=== PATIENT | female | born 1990 | race Hispanic/Latino ===

== ENCOUNTER → 2021-03-08 | Outpatient (CLI) | payer BC | END | disposition home or self-care (01) | LOC: DTH 16:01 | PROVIDERS: ATTEND Surgery | DX: K21.9 Gastro-esophageal reflux disease without esophagitis (principal); E66.01 Morbid (severe) obesity due to excess calories; K76.0 Fatty (change of) liver, not elsewhere classified | CPT/HCPCS: 97802 ==

== ENCOUNTER 2021-04-14 05:33 | Inpatient (IN) | payer OTHER ==
[2021-04-07 10:02] LABS: BASOPHILS % (AUTO) 0.3 % (0.0-5.0); EOSINOPHILS % (AUTO) 0.6 % (0.0-8.0); HEMATOCRIT 41.6 % (36-48); LYMPHOCYTES % (AUTO) 33.5 % (21.0-51.0); MEAN CORPUSCULAR HEMOGLOBIN 28.2 pg (27.0-33.0); MEAN CORPUSCULAR HGB CONC 32.9 g/dL (32.0-36.0); MEAN CORPUSCULAR VOLUME 85.6 fL (79-99); MONOCYTES % (AUTO) 5.7 % (3.0-13.0); NEUTROPHILS % (AUTO) 59.6 % (40.0-77.0); PLATELET COUNT (AUTO) 339 K/uL (130-400); RED BLOOD CELL COUNT(AUTO) 4.86 MIL/uL (4.00-5.50); RED CELL DISTRIBUTION WIDTH 12.4 % (11.0-15.5); WHITE BLOOD COUNT (AUTO) 7.9 K/uL (4.8-10.8)
[2021-04-07 10:16] LABS: CREATININE 0.6 mg/dL (0.5-1.5); POTASSIUM 4.2 mmol/L (3.5-5.1)
[2021-04-07 10:18] LABS: INR 1.01 (0.85-1.15)
[2021-04-07 10:20] LABS: PARTIAL THROMBOPLASTIN TIME 31.2 SEC (26.3-35.5)
[2021-04-13 12:50] VITALS: BP 137/75
[~2021-04-14] VITALS: Ht 160 cm; Wt 94.2 kg
[2021-04-14] VITALS (26 sets, daily range): BP systolic 107–132; BP diastolic 44–81
[~2021-04-14 05:33] MED LIST: ASCO100031 PO; CALC-1038 PO; LACTATED RINGERS 1000ML 1,000 ML IV ONE; MULT-1401 PO; OMEG-148 PO; ZINC220T4 PO
[2021-04-14] MEDS ORDERED: BUPIVACAINE/EPI/PF 0.5% 30ML VIAL IJ ONE (06:26)
[2021-04-14] MEDS ORDERED: METHYLENE BLUE 5 MG/ML AMP ONE (06:27)
[2021-04-14] MEDS ORDERED: SCOPOLAMINE HYDROBROMIDE 1 EACH ADH..PATCH TD ONE (06:36)
[2021-04-14] MEDS ORDERED: LIDOCAINE PF 100MG/5ML (2%) SYRINGE 5ML ONE (06:37)
[2021-04-14] MEDS ORDERED: DEXAMETHASONE SOD PHOSPHATE 10MG/ML 1ML VIAL ONE ×2 (06:37→07:50)
[2021-04-14] MEDS ORDERED: SUCCINYLCHOLINE 200MG/10ML SYR ONE (06:37)
[2021-04-14] MEDS ORDERED: FENTANYL CITRATE PF 50 MCG/1 ML 2ML VIAL ONE (06:38)
[2021-04-14] MEDS ORDERED: ROCURONIUM 10MG/1ML SYR 10 MG/ML ML ONE (06:38)
[2021-04-14] MEDS ORDERED: ONDANSETRON HCL 4 MG/2 ML VIAL ONE ×2 (06:38→08:20)
[2021-04-14] MEDS ORDERED: PROPOFOL 10 MG/ML 20ML VIAL IV ONE ×2 (06:38→07:52)
[2021-04-14] MEDS ORDERED: MIDAZOLAM HCL 1 MG/ML 2ML VIAL ONE (06:39)
[2021-04-14] MEDS ORDERED: KETAMINE 50MG/ML SYRINGE 50 MG/ML DISP.SYRIN IV ONE (06:43)
[2021-04-14] MEDS ORDERED: MAGNESIUM SULFATE 1 GM/2 ML VIAL ONE (06:43)
[2021-04-14] MEDS ORDERED: DEXMEDETOMIDINE HCL 200 MCG/2 ML VIAL IV ONE (06:43)
[2021-04-14] MEDS: CEFOXITIN SODIUM 2 GM VIAL ONE ×2 (06:44→07:19)
[2021-04-14] MEDS: CYANOCOBALAMIN (VITAMIN B-12) 1000 MCG/ML 1ML VIAL IM SCH ×2 (06:45→07:18)
[2021-04-14] MEDS: HEPARIN SODIUM 5000UNIT/ML 1ML VIAL ONE ×2 (07:02→07:19)
[2021-04-14] MEDS ORDERED: NEOSTIGMINE 5MG/5ML SYR IV ONE (08:39)
[2021-04-14] MEDS ORDERED: GLYCOPYRROLATE 1 MG/5 ML SYRINGE ONE (08:39)
[2021-04-14] MEDS ORDERED: SUGAMMADEX SODIUM 200 MG/2 ML VIAL IV ONE (08:54)
[2021-04-14] MEDS ORDERED: HYDROMORPHONE PCA 10 MG/50 ML 50 ML IV PRN (09:15)
[2021-04-14] MEDS ORDERED: MEPERIDINE-PF 25 MG/ML SYG ONE ×3 (09:33→11:44)
[2021-04-14] MEDS ORDERED: MORPHINE 2 MG SYG (2MG/1ML) ONE ×4 (11:08→15:40)
[2021-04-14] MEDS ORDERED: ONDANSETRON HCL 4 MG/2 ML VIAL IVP PRN (15:30)
[2021-04-14] MEDS ORDERED: PROCHLORPERAZINE EDISYLATE 10 MG/2 ML VIAL IV PRN (15:30)
[2021-04-14] MEDS ORDERED: MORPHINE 2 MG SYG (2MG/1ML) IVP PRN (15:30)
[2021-04-14] MEDS ORDERED: COMPOUND NARC IV MISC 1 EACH IVSOLN MISC PRN (19:30)
[2021-04-14] MEDS: HYDROCODONE/ACETAMINOPHEN 7.5/325 MG 15 ML UDCUP PO PRN ×2 (20:21→20:25)
[2021-04-14] MEDS: INSULIN HUMULIN R 100 UNIT/ML 3ML SQ SCH (21:00)
[2021-04-15 03:00] VITALS: BP 119/65
[2021-04-15] MEDS: HYDROCODONE/ACETAMINOPHEN 7.5/325 MG 15 ML UDCUP PO PRN ×3 (03:03→12:30)
[2021-04-15] MEDS: KETOROLAC TROMETHAMINE 30MG/ML IV PRN ×3 (03:08→15:58)
[2021-04-15 03:58] VITALS: BP 119/65
[2021-04-15] MEDS: INSULIN HUMULIN R 100 UNIT/ML 3ML SQ SCH (04:28)
[2021-04-15 08:00] VITALS: BP 118/61
[2021-04-15] MEDS ORDERED: ENOXAPARIN SODIUM 30 MG/0.3 ML SQ SCH (09:00)
[2021-04-15 12:00] VITALS: BP 108/67
== END 2021-04-15 17:08 | disposition home or self-care (01) | DRG 621 ==
LOC: DAHIP 05:33 → OBSVTOIN 05:33 → PREINTOOBSV 09:14 → 3AH 14:46
PROVIDERS: ADMIT Surgery; ATTEND Surgery
PROC: 0DB64Z3 Excision of Stomach, Percutaneous Endoscopic Approach, Vertical (ICD-10-PCS; principal; 2021-04-14 07:30)
DX: E66.01 Morbid (severe) obesity due to excess calories (principal); K21.9 Gastro-esophageal reflux disease without esophagitis; K58.9 Irritable bowel syndrome, unspecified; K76.0 Fatty (change of) liver, not elsewhere classified; Z20.822 Contact with and (suspected) exposure to COVID-19; Z68.36 Body mass index [BMI] 36.0-36.9, adult
CPT/HCPCS: 36415; 80048; 84703; 85025; 85610; 85730; 87635; G0378; J0330; J0694; J1100; J1644; J1650; J1885; J2001; J2175; J2250; J2405; J2704; J2710; J3010; J3420; J3475; J3490; J7030; J7120; Q9968